=== PATIENT | female | born 1990 | race Caucasian/White ===

== ENCOUNTER → 2024-07-25 | Outpatient (CLI) | payer SELFPAY ==
--- NOTE | 2024-07-25 15:26 | US_ITS ---
PROCEDURE: OB ANATOMY W/ TRANSVAGINAL REASON FOR EXAM: anatomy. COMPARISON: None. FINDINGS LMP: November 19, 2023. Number: 1 Position: Vertex Placental Position: Anterior and not low-lying. Placental Abnormalities: None. DIMENSIONS: Biparietal Diameter: 8.84 cm: 35 weeks and 5 days: 61%/ Head Circumference: 32.8 cm: 37 weeks and 2 days: 60%/ Abdominal Circumference: 32 0.8 cm: 36 weeks and 5 days: 86%/ Femur Length: 6.31 cm: 32 weeks and 5 days: 1.4%/ ESTIMATED WEIGHT: 2717 g plus/-480 g ESTIMATED WEIGHT PERCENTILE (24+ weeks): 50 ESTIMATED GESTATIONAL AGE: Baseline: 35 weeks and 4 days By Ultrasound: 35 weeks and 6 days ESTIMATED DATE OF DELIVERY: Baseline: August 25, 2024 By Ultrasound: August 23, 2024 BIOPHYSICAL ASSESSMENT: Amniotic Fluid Volume: Subjectively normal. Amniotic Fluid Index: 17.5 (8-24 cm normal range) Cardiac Motion: (average) Trunk and Limb Motion: Present. MATERNAL ANATOMY: Adnexa: Neither maternal ovary is successfully identified. Cervical Length (if measured): ANATOMY: Spine: Unremarkable. Cranium: Unremarkable. Cerebellum: Unremarkable. Cisterna Magna: Unremarkable. Cavum Septum Pellucidi: Present. Lateral Ventricles: Unremarkable. Choroid Plexus: Unremarkable. Midline Falx: Present. Nuchal Fold: Upper Lip: Grossly intact. Heart: Normal four-chamber view. Ventricular Outflow Tracts: Unremarkable. Stomach: Unremarkable. Kidneys: The right renal pelvis measures 9 mm. The left renal pelvis measures 10 mm. Bladder: Midline. Umbilical Cord: Three vessel cord. Normal and placental insertions. Extremities: Unremarkable. US/OB Anatomy w/ Transvaginal IMPRESSION: Single live intrauterine gestation with a mean gestational age of 35 weeks and 6 days. Fullness of both renal pelvis more prominent on the left side. Reading Location: [id number]
== END | disposition home or self-care (01) ==
PROVIDERS: Referring Provider Midwife; Visit Provider Midwife
DX: Z34.92 Encounter for supervision of normal pregnancy, unspecified, second trimester (principal)
CPT/HCPCS: 76805; 76817